=== PATIENT | male | born 1970 | race Caucasian/White ===

== ENCOUNTER 2020-01-19 16:05 | Emergency (ER) | payer OTHER, SELFPAY ==
--- NOTE | ~2020-01-19 | XR_ITS ---
EXAMINATION: XR knee RT min 4V EXAM DATE: 01/19/2020 16:43 INDICATION: No known recent injury provided at this time. Pain of the right knee, symptoms 2 months. TECHNIQUE: Right knee lateral, frontal AP, frontal PA tunnel, sunrise projections. There is no prior study for comparison. FINDINGS: No evidence osteochondral defect or joint body in the right knee joint. No joint effusio n. The joint spaces are uniform. There are no acute fractures or dislocations identified. There is n o subcutaneous gas. The soft tissue is unremarkable. There are no radiopaque foreign bodies. IMPRESSION: 1. Unremarkable right knee exam. Reviewed, dictated and finalized at location G.
[2020-01-19 16:11] VITALS: BP 194/120; BP 220/122; PULSE 102; RESP 20; TEMP 36.6; O2SAT 100
[2020-01-19 16:15] VITALS: BP 196/122
--- NOTE | 2020-01-19 16:20 | ED.LOWEXIN ---
HPI - Extremity Injury (Lower) General Chief Complaint: Extremity Injury, Lower Stated Complaint: right knee pain Time Seen by Provider: 01/19/20 16:20 Source: patient and RN notes reviewed History of Present Illness HPI Narrative: Patient is a 49-year-old male who presents the urgent care with complaints of 2-month history of right knee pain. Patient states that it is been bothering him for unknown reasons for the last 2 months and he has been wearing an elastic knee brace. Patient states that 2 weeks ago he helped his son carry a bunch of heavy cabinets and within the past couple days he has needed a crutch to bear weight. Patient states that the pain level is very minimal unless he bears weight. States that he has been using Advil as needed for pain. No other acute complaints. Denies of any known traumatic injury or fall. No acute distress noted. Patient aware of the plan of care. Some parts of this dictation were generated by voice recognition software and may contain typographical and/or grammatical inaccuracies. Related Data Allergies Allergy/AdvReac Type Severity Reaction Status Date / Time No Known Allergies Allergy Verified 01/19/20 16:29 Review of Systems Review of Systems: Narrative: CONSTITUTIONAL: Denies fever, chills, or sweats. EYES: Denies visual changes, redness, or discharge. ENT: Denies rhinorrhea, congestion, sore throat, or otalgia. CARDIOVASCULAR: Denies chest pain, palpitations, or edema. RESPIRATORY: Denies cough or dyspnea. GASTROINTESTINAL: Denies abdominal pain, nausea, vomiting, or diarrhea. GENITOURINARY: Denies dysuria or hematuria. SKIN: Denies rash or itching. MUSCULOSKELETAL: Reports of right knee pain NEUROLOGIC: Denies headache, numbness, or weakness. All other systems reviewed are negative, except as documented in HPI. PMFSH Comments At the time of my signature, I reviewed and agree with the nursing past medical, surgical, social, and family history. There is no relevant family history pertinent to the patient complaint. Exam Narrative: Exam Narrative: GENERAL: This is a well-nourished, well-developed patient, in no apparent distress. HEAD: normocephalic, atraumatic. EYES: PERRL. Sclera clear/white. Vision is grossly intact. EARS: External ears normal, NOSE: External nose normal with no obvious nasal discharge, nares without redness, no rhinorrhea. THROAT: Mucous membranes moist NECK: Neck supple SKIN: warm, intact with no suspicious lesions or rash, good texture and turgor. NEURO: awake, alert, and oriented to person, place and time. There were no obvious focal neurologic abnormalities. EXTREMITIES: No point tenderness to right knee. Mild posterior right knee tenderness. Drawer test negative to right lower extremity. Positive strong right pedal pulse with capillary refill less than 2 seconds. Range of motion to right lower extremity within normal limits. Pain exacerbated to right knee with weightbearing Course Vital Signs Vital signs: Vital Signs Temperature 98 F 01/19/20 16:11 Pulse Rate 102 H 01/19/20 16:11 Respiratory Rate 20 01/19/20 16:11 Blood Pressure 220/122 H 01/19/20 16:11 Pulse Oximetry 100 01/19/20 16:11 Temperature 98 F 01/19/20 16:11 Pulse Rate 102 H 01/19/20 16:11 Respiratory Rate 20 01/19/20 16:11 Blood Pressure 196/122 H 01/19/20 16:15 Pulse Oximetry 100 01/19/20 16:11 Reviewed?patient is informed that they may have pre-hypertension or hypertension based on a blood pressure reading in the department. I recommend the patient call the primary care provider listed on their discharge instructions or a physician of their choice this week to arrange follow-up for further evaluation of possible pre-hypertension or hypertension. Patient denies any known history of hypertension and states that he has never been treated for hypertension in the past. States that he has not followed up with the primary care doctor in many years. Patient c
[2020-01-19 17:10] VITALS: BP 202/109
== END 2020-01-19 17:10 | disposition home or self-care (01) ==
PROVIDERS: Emergency Provider Nurse Practitioner Family
DX: M25.561 Pain in right knee (principal)
CPT/HCPCS: 73564; 99213; G0463